=== PATIENT | female | born 1950 | race Caucasian/White ===

== ENCOUNTER 2023-04-12 09:46 | Outpatient (REF) | payer MEDICARE, OTHER, SELFPAY ==
[2023-04-12 11:27] LABS: MANUAL DIFF FLAG NO
[2023-04-12 12:01] LABS: Basophils Percent Auto 0.8 % (0-2); Eosinophils Absolute Auto 0.1 X10*3/uL (0.0-0.4); Eosinophils Percent Auto 1.8 % (0-4); Hematocrit 42.8 % (37.0-47.0); Hemoglobin 14.2 g/dl (12.0-16.0); Imm Gran Abs Auto 0.02 X10*3/uL (0.00-0.03); Imm Gran Pct Auto 0.4 % (0.0-0.4); Lymphocytes Absolute Auto 1.3 X10*3/uL (1.2-4.9); Lymphocytes Percent Auto 26.5 % (20-40); Mean Corpuscular HGB Conc 33.2 g/dl (31.0-35.0); Mean Corpuscular Hemoglobin 33.4 pg (27.0-33.0); Mean Corpuscular Volume 100.7 fL (80.0-98.0); Mean Platelet Volume 12.7 fL (9.4-12.3); Monocytes Absolute Auto 0.6 X10*3/uL (0.1-1.2); Monocytes Percent Auto 11.8 % (2-11); Neutrophils Absolute Auto 2.9 x10*3/uL (2.0-8.3); Neutrophils Percent Auto 58.7 % (45-73); Platelet Count 162 X10*3/uL (160-400); Red Blood Count 4.25 X10*6/uL (4.20-5.50); Red Cell Distribution Width 12.2 % (11.0-16.0)
[2023-04-12 12:41] LABS: Alanine Aminotransferase 10 U/L (0-31); Albumin Level 4.5 g/dL (3.5-5.0); Alkaline Phosphatase 79 U/L (39-117); Anion Gap 11 (12-20); Aspartate Amino Transferase 22 U/L (5-31); Bilirubin Total 0.5 mg/dL (0.0-1.0); Blood Urea Nitrogen 11 mg/dL (9-16); Calcium 9.7 mg/dL (8.4-10.2); Carbon Dioxide 29 mmol/L (22-29); Chloride 104 mmol/L (96-108); Estimated Glomerular Filt Rate > 60; Glucose Random 87 mg/dL (60-115); Potassium 4.1 mmol/L (3.3-5.1); Sodium 140 mmol/L (135-145); Total Protein 6.9 g/dL (6.5-8.0)
[2023-04-12 12:47] LABS: Thyroid Stimulating Hormone 1.19 uIU/mL (0.32-4.0)
== END 2023-04-12 09:47 | disposition home or self-care (01) ==
LOC: HO.LAB 09:46
PROVIDERS: PCP Family Medicine; Visit Provider Physician Assistant
DX: R10.13 Epigastric pain (principal); K21.9 Gastro-esophageal reflux disease without esophagitis; Z79.899 Other long term (current) drug therapy
CPT/HCPCS: 36415; 80053; 84443; 85025; 99202

== ENCOUNTER 2023-04-12 09:46 | Outpatient (AMB) | payer MEDICARE, OTHER, SELFPAY ==
--- NOTE | 2023-04-12 09:54 | MHC.OFFVIS ---
Intake Vital Signs 04/12/23 09:58 Height 5 ft 1.5 in Weight 107 lb BMI 19.9 Blood Pressure Location Lt brachial Position Sitting Intake Visit Reasons: Upper abdominal pain and intermittent diarrhea Intake Note: New consult for upper abdominal pain and diarrhea. Patient cc: upper abdominal pain and sore, hemorrhoids, and between constipation and diarrhea. Service Desk Technician Required: No Accompanied by: Self / Same As Patient Allergies pseudoephedrine [From Sudafed] Allergy (Intermediate, Verified 04/12/23 09:59) Dizziness Medication List - Last Reconciled 04/12/23 by Jolanta No PA-C betamethasone, augmented 0.05 % appl topical DAILY cholecalciferol (vitamin D3) 10 mcg PO DAILY hydrocortisone 2.5% topical ipratropium bromide intranasal mecobalamin (vitamin B12) 1,000 mcg PO DAILY nifedipine ER 60 mg PO DAILY simvastatin 20 mg PO BEDTIME vit B complex 100 combo no.2 ER (B-100 Complex ER) tabs PO HPI HPI Comments History of Present Illness Details A 72 y/o female with annoyances -she says it is not pain-= its mostly, around the rib area bilaterally- prilosec was helpful-took for 6 weeks. Then discontinued as recommended. She feels like she is malodorous breath, she went to the dentist no findings to account for symptoms Dietary modifications were helpful-he eats a well-balanced diet She has a normal bowel pattern. She was established at [facility]-scheduled for a colonoscopy at [facility] for next month- where she had her last- she thinks No nausea, vomiting, weight loss, hematemesis, hematochezia, fever chills [facility] Surgical History History of surgery on left wrist Social History Household Members: Family and Adopted Family Household Members Other:: 4 kids Alcohol intake: current Alcohol intake frequency: a few times a week Alcohol type: wine Patient Tobacco Use Status: Never used Tobacco Use of substances other than those prescribed or required for medical reasons: No Current occupational status: retired Review of Systems Const All systems reviewed & are unremarkable except as noted in HPI and below Card Denies chest pain and Denies dyspnea Resp Denies dyspnea GI Reports abdominal pain, Denies hematochezia, Denies change in bowel habits, Reports heartburn, Denies nausea and Denies vomiting Physical Exam Vital Signs: BMI result Body Mass Index 19.9 Const General: cooperative, healthy appearing, comfortable and no acute distress Orientation/consciousness: patient oriented x3 Limitations: no limitations Eyes Sclerae: sclerae normal Resp Effort & Inspection: normal respiratory effort and able to speak in complete sentences Auscultation: clear to auscultation bilaterally, no rales, no rhonchi and no wheezes Cardio Rate: regular rate Rhythm: regular rhythm Heart sounds: S1 normal heart sound present and S2 normal heart sound present GI Palpation (GI): Soft to palpation and nontender Auscultation: normal bowel sounds Skin General skin exam: no rashes or lesions noted Neuro General: patient oriented x3 Extrem General: Yes full ROM Psych Appearance: grossly normal and well kempt Mental Status: mental status grossly normal Speech and movement: Normal speech and movement present Affect: normal affect Attitude: cooperative Thought process: Normal thought process present Thought content: Normal thought content present Results Reviewed Results Reviewed: 2014- [facility]- diverticulosis- Assessment & Plan Assessment & Plan (1) Epigastric pain: Comment: Symptom will relief with PPI she will begin omeprazole 20 mg Code(s): R10.13 - Epigastric pain (2) Encounter for screening colonoscopy: Comment: After further discussion patient had appointment for colon screening consult at [facility] She prefers to follow through with us Code(s): Z12.11 - Encounter for screening for malignant neoplasm of colon (3) Acid reflux: Comment: Will get H pylori with positive will treat When sample submitted begin omeprazole 20 mg daily Code(s): K21.9 - Gastro-esophageal reflux disease without esophagitis Plan: EGD rule out peptic ulcer disease, nonulcer dyspepsia, esophagitis, other endoscopic findings to account for her symptoms Plan EGD colonoscopy Chronic MiraLax Gatorade prep Orders: Orders H pylori Ag Stool Today A04.8 - Other specified bacterial intestinal infections Thyroid Stimulating Hormone Today R10.13 - Epigastric pain, Z12.11 - Encounter for screening for malignant neoplasm of colon EGD/Sigmoid Combo -GI Use Only Today R10.13 - Epigastric pain, Z12.11 - Encounter for screening for malignant neoplasm of colon Complete Blood Count Auto Diff Today R10.13 - Epigastric pain Comprehensive Met. Panel Today K58.9 - Irritable bowel syndrome without diarrhea Medications: New polyethylene glycol 3350 (Miralax) Take as directed by mouth the day before your procedure. 238 grams PO ONCE 1 day PRN 238 grams 0RF laxative effect bisacodyl (Dulcolax (bisacodyl)) Day before procedure, prep day Take 4 tablets by mouth upon awakening followed by large glass of water 20 mg (4 x 5 mg) PO ONCE 1 day 4 tabs 0RF colonoscopy prep Z12.11 - Encounter for screening for malignant neoplasm of colon omeprazole 40 mg (2 x 20 mg) PO DAILY 30 caps 5RF Patient Instructions: EGD/ colon H pylori stool antigen-once sample submitted may begin omeprazole 20 mg Hp- if positive- otherwise cont- ppi Discussed procedures, risks, need for escorted due to anesthesia in MiraLax Gatorade split prep literature given Coding Level of Care Code New Pt Level 3 (86576) Diagnoses Epigastric pain R10.13 Encounter for screening colonoscopy Z12.11 Acid reflux K21.9 Time Spent (min) 30
[2023-04-12 09:58] VITALS: BMI 19.9
== END 2023-04-12 11:25 | disposition home or self-care (01) ==
PROVIDERS: Visit Provider Physician Assistant
DX: R10.13 Epigastric pain (principal); Z12.11 Encounter for screening for malignant neoplasm of colon; K21.9 Gastro-esophageal reflux disease without esophagitis
CPT/HCPCS: 99203

== ENCOUNTER 2023-04-14 12:50 | Outpatient (REF) | payer MEDICARE, OTHER, SELFPAY | END 2023-04-14 12:51 | disposition home or self-care (01) | LOC: HO.WFDLDS 12:50 | PROVIDERS: Visit Provider Physician Assistant | DX: A04.8 Other specified bacterial intestinal infections (principal) | CPT/HCPCS: 87338 ==

== ENCOUNTER 2023-08-16 08:20 | Day surgery (SDC) | payer MEDICARE, OTHER, SELFPAY ==
--- NOTE | 2023-08-15 13:24 | P.CONAN_ITS ---
HPI - Anesthesia Eval Consult details Narrative: 73yo F for Upper Endoscopy and Colonoscopy PMFSH Active Problems Active Problems: All Active Problems (Updated 04/12/23 @ 13:54 by Jolanta No PA-C) Acid reflux (Acute) Encounter for screening colonoscopy (Acute) Epigastric pain (Acute) Surgical History Surgical History History of surgery on left wrist Social History Social History Household Members: Family and Adopted Family Household Members Other:: 4 kids Alcohol intake: current Alcohol intake frequency: a few times a week Alcohol type: wine Patient Tobacco Use Status: Never used Tobacco Current occupational status: retired Meds Allergies Allergy/AdvReac Type Severity Reaction Status Date / Time pseudoephedrine Allergy Intermediate Dizziness Verified 04/12/23 09:59 [From [facility]] Home Medications Medication Instructions Recorded Confirmed Last Taken Type betamethasone, augmented 0.05 % appl topical DAILY 04/12/23 Unknown History topical cream cholecalciferol (vitamin D3) 10 10 mcg PO DAILY 04/12/23 Unknown History mcg (400 unit) capsule hydrocortisone 2.5 % topical cream topical 04/12/23 Unknown History with perineal applicator ipratropium bromide 21 mcg (0.03 intranasal 04/12/23 Unknown History %) nasal spray mecobalamin (vitamin B12) 1,000 1,000 mcg PO DAILY 04/12/23 Unknown History mcg lozenges nifedipine 60 mg tablet,extended 60 mg PO DAILY 04/12/23 Unknown History release simvastatin 20 mg tablet 20 mg PO BEDTIME 04/12/23 Unknown History vit B complex 100 combo no.2 100 tab PO 04/12/23 Unknown History mg tablet,extended release (B-100 Complex ER) Exam Pertinent Lab Results Pertinent Lab Results: Laboratory Tests 04/12/23 11:25 WBC 5.0 Hgb 14.2 Hct 42.8 Plt Count 162 Sodium 140 Potassium 4.1 Chloride 104 Carbon Dioxide 29 BUN 11 Creatinine 0.79 Assessment and Plan Assessment Anesthesia Assessment: Chart Reviewed
[2023-08-16 08:51] VITALS: BMI 19.8
[2023-08-16 09:02] VITALS: BP 147/68; PULSE 54; RESP 16; TEMP 36.7; O2SAT 98
--- NOTE | 2023-08-16 09:15 | MHC.SHP ---
Pre-Procedural Eval Section A - 24 Hr Update-Section A only Date of Service: 08/16/23 Section B - Complete if H&P > 30 days Chief Complaint: gerd,screening Relevant Family History (Specify if Yes): No Relevant Social History: None Present Medications: see Short Stay Collaborative assessment Medical History: Significant History (high cholesterol , HTN) History of Previous Operations: Relevant previous surgery/procedure and date(s) (History of surgery on left wrist) Allergies: Allergies Allergy/AdvReac Type Severity Reaction Status Date / Time pseudoephedrine Allergy Intermediate Dizziness Verified 08/16/23 08:46 [From [facility]] Review of Systems Sugical H&P ROS: Negative: Constitution, Cardiovascular, Respiratory, Neurological, Psychiatric, Hem-Onc, Allergic/Immunologic, Gastrointestinal, Genitourinary, Musculoskeletal, Integumentary, Endocrine and Eyes/Ears/Nose/Throat Exam Surgical H&P Exam: Normal: HEENT, Normal: Heart, Normal: Lungs, Normal: Extremities, Normal: Abdomen, Normal: Skin and Normal: Neurological Plan Diagnosis/Plan: Unchanged I have reviewed the history and physical and performed a pertinent physical examination on my patient. No changes have occurred unless specified. Time Spent With Patient Time: Total time managing care of this patient today ____ minutes.
[2023-08-16] MEDS: Lactated Ringers 1,000 ML 100 ML IVCONT (09:18)
--- NOTE | 2023-08-16 09:19 | P.OP_ITS ---
Operative Note Operative Note Date of Service: 08/16/23 Narrative: Operative Information Procedure Description: EGD, Colonoscopy Indication: GERD, screening Anesthesia: MAC FLEXIBLE TRANSORAL UPPER GASTROINTESTINAL ENDOSCOPY AND COLONOSCOPY PROCEDURE NOTE UPPER ENDOSCOPY Consent: Indications for the procedure and potential complications of bleeding, perforation, reaction to medications and missed diagnosis were discussed with the patient and informed consent was obtained. Instrument: Olympus GIF H 190 J mid size upper endoscope Monitoring: Vital signs and clinical assessment, continuous EKG monitoring, Pulse oximetry, Carbon Dioxide monitoring and blood pressure monitoring were done throughout the procedure. Procedure: The patient was placed in the left lateral decubitis position and pre-procedure medications were administered and a bite block was placed. The endoscope was inserted into the mouth and advanced under direct vision to the third part of duodenum. A careful inspection was made as the upper endoscope was withdrawn including a retroflexed examination of the proximal stomach; Findings and interventions are described below. Findings: Larynx:normal Esophagus: GE junction at 43 cm, diaphragm hiatus at 43 cm, normal mucosa--bx t aken from GEJ, distal and proximal esophagus Stomach: Patchy erythema in the antrum. Biopsies were obtained. Grade 2 flap valve on retroflexed examination of the cardia. Duodenum: Normal bulb and descending duodenum, Intervention: Biopsies as noted above, COLONOSCOPY Instrument: Olympus variable stiffness pediatric scope 190L Colonoscopy Monitoring: Vital signs and clinical assessment, continuous EKG monitoring, Pulse oximetry, Carbon Dioxide monitoring and blood pressure monitoring were done throughout the procedure. Colon withdrawal time was 9 minutes. Procedure: The patient was placed in the left lateral decubitis position and pre-procedure medications were administered. After a digital rectal examination of the ano-rectum, the video colonoscope was inserted into the rectum and advanced through the colon to the cecum/TI. The colonoscope was slowly withdrawn in a retrograde panoramic fashion and the colon mucosa was carefully examined including a retroflexed view of the rectum. Findings and interventions are described below. Procedure Difficulty:moderate Findings: Terminal Ileum-superficially intubated, normal Cecum: 4-6 mm sessile polyp removed with cold forceps Ascending Colon: scattered diverticula Transverse Colon -normal Descending Colon: moderate diveticulosis Sigmoid Colon: moderate severe diverticulosis, with luminal narrowing and hypertrophy Rectum: Retroflexion with medium sized internal hemorrhoids, grade I Anorectum - normal Colon preparation: [place] Bowel Preparation Scale Right colon; 2 Transverse colon: 2 Left colon; 2 (0 = Unprepared colon segment with mucosa not seen due to solid stool that cannot be cleared. 1 = Portion of mucosa of the colon segment seen, but other areas of the colon segment not well seen due to staining, residual stool and/or opaque liquid. 2 = Minor amount of residual staining, small fragments of stool and/or opaque liquid, but mucosa of colon segment seen well. 3 = Entire mucosa of colon segment seen well with no residual staining, small fragments of stool or opaque liquid) Impression and Post Procedure Diagnosis: Endoscopy Findings: gastritis Colonoscopy Findings: diverticulosis colon polyp internal hemorrhoids Plan: Await Pathology results Repeat Colonoscopy in 5-7 years if adenomatous polyp, 10 yrs if hyperplastic or earlier if clinically indicated and if patient wishes to proceed at the time (official screening age ends at 76) High fiber diet leaflet avoid straining at stool, epsom salts and sitz bath, anusol supps or cream Above findings were reviewed with the patient and relevant handouts were provided if indicated.
[2023-08-16 09:59] VITALS: BP 130/61; PULSE 60; RESP 10; TEMP 36.2; O2SAT 99
[2023-08-16 10:14] VITALS: BP 131/61; PULSE 62; RESP 16; TEMP 36.2; O2SAT 98
== END 2023-08-16 11:24 | disposition home or self-care (01) ==
PROVIDERS: PCP Family Medicine; Visit Provider Internal Medicine Gastroenterology
PROC: (CPT 43239; principal; 2023-08-16 10:20)
DX: K29.70 Gastritis, unspecified, without bleeding (principal); K21.9 Gastro-esophageal reflux disease without esophagitis; Z12.11 Encounter for screening for malignant neoplasm of colon; K63.5 Polyp of colon; K57.30 Diverticulosis of large intestine without perforation or abscess without bleeding; K64.0 First degree hemorrhoids; K56.2 Volvulus
CPT/HCPCS: 43239; 45380; 88305; 88313; 88342; J1596; J2704

== ENCOUNTER → 2023-08-16 08:20 | Outpatient (BNV) | payer MEDICARE, OTHER, SELFPAY | PROVIDERS: PCP Family Medicine; Visit Provider Internal Medicine Gastroenterology | DX: Z12.11 Encounter for screening for malignant neoplasm of colon (principal); K63.5 Polyp of colon; K57.90 Diverticulosis of intestine, part unspecified, without perforation or abscess without bleeding; K64.0 First degree hemorrhoids; K21.9 Gastro-esophageal reflux disease without esophagitis; K29.70 Gastritis, unspecified, without bleeding | CPT/HCPCS: 43239; 45380 ==

== ENCOUNTER 2023-08-29 10:57 | Outpatient (AMB) | payer MEDICARE, OTHER, SELFPAY ==
--- NOTE | 2023-08-29 11:01 | A.OFFVIS_ITS ---
Intake Vital Signs 08/29/23 11:03 Height 5 ft 2 in Weight 109 lb BMI 19.9 BP 136/62 Blood Pressure Location Lt brachial Position Sitting Pulse 76 Intake Visit Reasons: S/P Double; Dr.. Poe Intake Note: Patient follow up for EGD/Colonoscopy results Patient denies any GI issues. Interlocking And Signal Mechanic Required: No Accompanied by: Self / Same As Patient Allergies pseudoephedrine [From Sudafed] Allergy (Intermediate, Verified 08/29/23 11:01) Dizziness HPI HPI Comments History of Present Illness Details Pleasant 73-year-old fem gustavo follows up after recent EGD colonoscopy Tolerated procedures well Reviewed previous history Questions answered to her satisfaction Reviewed procedure report, pathology and recommended Good response with PPI and dietary modification No nausea, fall vomiting, hematemesis, abdominal pain, fever chills PFSH Medical History (Updated 08/29/23 @ 12:55 by Jolanta No PA-C) History of deviated nasal septum Surgical History History of esophagogastroduodenoscopy (EGD) Hx of oral surgery Hx of colonoscopy History of surgery on left wrist Social History Household Members: Family and Adopted Family Household Members Other:: 4 kids Alcohol intake: current Alcohol intake frequency: a few times a week Alcohol type: wine Patient Tobacco Use Status: Never used Tobacco Current occupational status: retired Review of Systems Const All systems reviewed & are unremarkable except as noted in HPI and below Physical Exam Vital Signs: Last Vital Signs Pulse 76 08/29/23 11:03 BP 136/62 08/29/23 11:03 BMI result Body Mass Index 19.9 Very pleasant, alert oriented Resp Effort & Inspection: normal respiratory effort and able to speak in complete sentences Psych Appearance: grossly normal and well kempt Mental Status: mental status grossly normal Speech and movement: Normal speech and movement present and Clear speech present Affect: normal affect Attitude: cooperative Thought process: Normal thought process present Thought content: Normal thought content present Results Reviewed Results Reviewed: Impression and Post Procedure Diagnosis: Endoscopy Findings: gastritis Colonoscopy Findings: diverticulosis colon polyp internal hemorrhoids Plan: Await Pathology results Repeat Colonoscopy in 5-7 years if adenomatous polyp, 10 yrs if hyperplastic or earlier if clinically indicated and if patient wishes to proceed at the time (official screening age ends at 76) High fiber diet leaflet avoid straining at stool, epsom salts and sitz bath, anusol supps or cream Above findings were reviewed with the patient and relevant handouts were provided if indicated. pls tell pt benign polyp removed from recent colonoscopy which is good news. These are clumps of normal tissue without any cancer. recommend repeat colon in 10 years if health allows, or earlier if any concerns or new symptoms EGD reveals reflux changes in lower esophagus might benefit from ppi of not taking Assessment & Plan Assessment & Plan (1) Acid reflux: Comment: Continue omeprazole 20 mg daily Code(s): K21.9 - Gastro-esophageal reflux disease without esophagitis Plan: PPI (2) Epigastric pain: Comment: Resolved Code(s): R10.13 - Epigastric pain Plan: Continue PPI (3) Colon polyps: Comment: Colon polyps benign - tissue Code(s): K63.5 - Polyp of colon Plan: Benign, repeat colonoscopy 10 years Patient Instructions: Repeat asymptomatic colonoscopy 10 Of reflux precautions review Continue omeprazole daily Encouraged to call questions or concerns Coding Level of Care Code Est Pt Level 3 (12148) Diagnoses Acid reflux K21.9 Epigastric pain R10.13 Colon polyps K63.5 Time Spent (min) 35
[2023-08-29 11:03] VITALS: BP 136/62; PULSE 76; BMI 19.9
== END 2023-08-29 13:24 | disposition home or self-care (01) ==
PROVIDERS: PCP Family Medicine; Visit Provider Physician Assistant
DX: K21.9 Gastro-esophageal reflux disease without esophagitis (principal); R10.13 Epigastric pain; K63.5 Polyp of colon
CPT/HCPCS: 99213

== ENCOUNTER → 2023-08-29 10:57 | Outpatient (BNVA) | payer MEDICARE, OTHER, SELFPAY | PROVIDERS: PCP Family Medicine; Visit Provider Physician Assistant | DX: K21.9 Gastro-esophageal reflux disease without esophagitis (principal); R10.13 Epigastric pain; K63.5 Polyp of colon | CPT/HCPCS: 99212 ==

== ENCOUNTER 2024-09-21 10:46 | Outpatient (AMB) | payer MEDICARE, OTHER, SELFPAY ==
--- NOTE | 2024-09-21 10:57 | MHC.OFFVIS ---
Vital Signs 09/21/24 10:58 Height 5 ft 1 in Weight 109 lb BMI 20.6 BP 120/54 L Blood Pressure Location Lt brachial Position Sitting Pulse 68 Pulse Oximetry (%) 96 Oxygen Delivery Method Room Air Intake Visit Reasons: ~ 1 YR FUV. GERD(EILEEN PT) Intake Note: Patient complex follow up for GERD/Jolanta velasco 08/29/2023 and last Colonoscopy was 08/16/[address] Poe with 5 yrs recall. Patient cc: between diarrhea and constipation, feeling sensation of chocking on her esophagus. Linderman Operator Required: No Accompanied by: Self / Same As Patient Allergies pseudoephedrine [From Sudafed] Allergy (Intermediate, Verified 09/21/24 10:55) Dizziness Medication List - Last Reconciled 09/21/24 by Felipa Melendez CNP betamethasone, augmented 0.05 % appl topical DAILY cholecalciferol (vitamin D3) 10 mcg PO DAILY glucosamine HCl 1,500 mg PO DAILY hydrocortisone 2.5% topical ipratropium bromide intranasal mecobalamin (vitamin B12) 1,000 mcg PO DAILY nifedipine ER 60 mg PO DAILY omeprazole 40 mg (2 x 20 mg) PO DAILY 90 days simvastatin 20 mg PO BEDTIME vit B complex 100 combo no.2 ER (B-100 Complex ER) tabs PO HPI HPI ~ 1 YR FUV. GERD(EILEEN PT): Details: Patient is a 74-year-old female with PMH of GERD. Last visit with NADINE Pena 08/29/2023 for follow-up after EGD/colonoscopy. Pt is here today for medication refill for GERD management . She reports acid reflux symptoms are well controlled with daily omeprazole. States flares occur less than one/month. Shares esophageal spasm approx 2x/month down from weekly occurrence. She is requiring about long-term use of omeprazole with known osteoporosis. She reports stool pattern is at baseline of prominent constipation alternating with loose stools. Reports BM almost every day. States she stop taking fiber gummies about three months ago after no change in stool pattern. Associated symptoms: ab discomfort Patient denies: fever/chills, n/v, appetite changes, unintentional wt loss, dysphasia, or melena/hematochezia. common foods consumed: eggs, yogurt, cereal half meat sandwhich limited red meat, mostly chicken and fish endorse adequate intake of vegetables, fruit 3x/week and legumes drinking [place] for hydration, minimal flat water intake, also drinks ice tea Social hx: 1-2 glasses of wine or vodka denies recreational drug use non-smoker family hx father passed from pancreatic CA multiple paternal cousins with breast and other forms of CA denies personal hx of CA fiber tablet, diet omeprazole 20, 40mg with goal to reduce. Can bring pepcid. [facility] Medical History (Updated 09/21/24 @ 11:58 by Felipa Melendez CNP) Constipation History of deviated nasal septum Surgical History History of esophagogastroduodenoscopy (EGD) Hx of oral surgery Hx of colonoscopy History of surgery on left wrist Social History Household Members: Family and Adopted Family Household Members Other:: 4 kids Alcohol intake: current Alcohol intake frequency: a few times a week Alcohol type: wine Patient Tobacco Use Status: Never used Tobacco Current occupational status: retired Review of Systems Const Reports as per HPI ENT Reports as per HPI Card Reports as per HPI Resp Reports as per HPI GI Reports as per HPI Reports as per HPI Physical Exam Vital Signs: Last Vital Signs Pulse 68 09/21/24 10:58 BP 120/54 L 09/21/24 10:58 Pulse Ox 96 09/21/24 10:58 Oxygen Delivery Method Room Air 09/21/24 10:58 BMI result Body Mass Index 20.6 Const General: healthy appearing, no acute distress and well developed Nutritional Appearance: well nourished Orientation/consciousness: patient oriented x3 HEENT Head: Yes normal to inspection, Yes normocephalic and Yes atraumatic Face and sinus: Yes normal facial exam Eyes General: appearance normal, both eyes and all related structures Neck Neck: Yes normal visual inspection Resp Effort & Inspection: normal respiratory effort, able to speak in complete sentences, no tracheal deviation and symmetric chest movement Auscultation: clear to auscultation bilaterally Cardio Jugular venous distension: no JVD Rate: regular rate Rhythm: regular rhythm Heart sounds: S1 normal heart sound present, S2 normal heart sound present, no gallops and no murmurs GI Inspection: Yes normal to inspection and No distended Palpation (GI): Soft to palpation, not firm, nontender and No hepatosplenomegaly present Auscultation: normal bowel sounds Neuro General: patient oriented x3 Gait exam (Neuro): Normal gait present Psych Appearance: grossly normal Mental Status: mental status grossly normal Speech and movement: Normal speech and movement present Affect: normal affect Attitude: cooperative Thought process: Normal thought process present Thought content: Normal thought content present Insight: Good insight present (Psych) Judgement: Good judgement present (Psych) Results Reviewed Results Reviewed: Date of Service: 08/16/23 Narrative: Operative Information Procedure Description: EGD, Colonoscopy Indication: GERD, screening FLEXIBLE TRANSORAL UPPER GASTROINTESTINAL ENDOSCOPY AND COLONOSCOPY PROCEDURE NOTE UPPER ENDOSCOPY Procedure: The patient was placed in the left lateral decubitis position and pre-procedure medications were administered and a bite block was placed. The endoscope was inserted into the mouth and advanced under direct vision to the third part of duodenum. A careful inspection was made as the upper endoscope was withdrawn including a retroflexed examination of the proximal stomach; Findings and interventions are described below. Findings: Larynx:normal Esophagus: GE junction at 43 cm, diaphragm hiatus at 43 cm, normal mucosa--bx taken from GEJ, distal and proximal esophagus Stomach: Patchy erythema in the antrum. Biopsies were obtained. Grade 2 flap valve on retroflexed examination of the cardia. Duodenum: Normal bulb and descending duodenum, Intervention: Biopsies as noted above COLONOSCOPY Procedure: The patient was placed in the left lateral decubitis position and pre-procedure medications were administered. After a digital rectal examination of the ano-rectum, the video colonoscope was inserted into the rectum and advanced through the colon to the cecum/TI. The colonoscope was slowly withdrawn in a retrograde panoramic fashion and the colon mucosa was carefully examined including a retroflexed view of the rectum. Findings and interventions are described below. Procedure Difficulty:moderate Findings: Terminal Ileum-superficially intubated, normal Cecum: 4-6 mm sessile polyp removed with cold forceps Ascending Colon: scattered diverticula Transverse Colon -normal Descending Colon: moderate diveticulosis Sigmoid Colon: moderate severe diverticulosis, with luminal narrowing and hypertrophy Rectum: Retroflexion with medium sized internal hemorrhoids, grade I Anorectum - normal Colon preparation: Means Bowel Preparation Scale Right colon; 2 Transverse colon: 2 Left colon; 2 Impression and Post Procedure Diagnosis: Endoscopy Findings: gastritis Colonoscopy Findings: diverticulosis colon polyp internal hemorrhoids Plan: Await Pathology results Repeat Colonoscopy in 5-7 years if adenomatous polyp, 10 yrs if hyperplastic or earlier if clinically indicated and if patient wishes to proceed at the time (official screening age ends at 76) High fiber diet leaflet avoid straining at stool, epsom salts and sitz bath, anusol supps or cream Pathology Received: 08/16/23 Diagnosis A. Stomach, biopsy: Antral-type and oxyntic mucosa with mild chronic inactive inflammation; no Helicobacter organisms seen. B. GE junction, biopsy: - Cardiac-type mucosa with moderate chronic inactive inflammation; no intestinal metaplasia seen. - Squamous mucosa within normal limits. C. Esophagus, distal, biopsy: Squamous epithelium within normal limits; no inflammation seen. D. Esophagus, proximal, biopsy: Squamous epithelium within normal limits; no inflammation seen. E. Cecum, polypectomy: Colonic mucosa with prominent lymphoid aggregate and mild surface hyperplastic changes Assessment & Plan Assessment & Plan (1) Colon polyps: Comment: 08/16/23: Cecum, polypectomy: hyperplastic changes. colonoscopy due 2033 (consider age) Code(s): K63.5 - Polyp of colon Category: Medical Qualifiers: Colon polyp type: hyperplastic Colon location: unspecified part of colon Qualified Code(s): K63.5 - Polyp of colon Plan: Colonoscopy July 2023 recommendations for repeat in 10 years based on findings of hyperplastic colon polyp, cecum. She will be due 2033. We will continually evaluate risk and discuss given age. (2) Acid reflux: Code(s): K21.9 - Gastro-esophageal reflux disease without esophagitis Category: Medical Qualifiers: Esophagitis presence: with esophagitis Esophagitis bleeding: without hemorrhage Qualified Code(s): K21.00 - Gastro-esophageal reflux disease with esophagitis, without bleeding Plan: Well-controlled with daily omeprazole. Understands concern of long-term use of PPI. We do not have records indicating osteoporosis. We will request most recent office visit note, DEXA scan and any recent labs from PCP office. She is taking vitamin D and B12 supplement. We will obtain monitoring labs. Jolanta would like to initiate a trial of alternating between 20 mg and 40 mg doses of omeprazole every other day. Advised she can bridge with Pepcid if needed. Education on GERD prevention-Advised against heavy meals. Encouraged small frequent meals VS large meals, remaining upright after meals x 2-3 hours, avoid late night eating/carbonation/spicy foods/caffeine/alcohol/known triggers and tight fitting clothes (3) Constipation: Code(s): K59.00 - Constipation, unspecified Category: Medical Qualifiers: Constipation type: other constipation type Qualified Code(s): K59.09 - Other constipation Plan: Consistent with IBS-C. Do believe she would benefit from fiber supplementation. Discussion on formulation, powder is preferred over gummies or tablets. However, she is not keen on powder. We will start with tablet, Citrucel prescription sent to preferred pharmacy. Reinforced lifestyle modifications to promote regularity: -higher fiber diet, examples provided -adequate hydration with water -150 minutes of moderate intensity exercise per week Plan Discussed follow-up in 6 months. However, Jolanta would prefer follow-up in 1 year and will return sooner if needed. Time: I spent a total of 45 minutes on the date of encounter which includes: Preparing to see the patient (reviewed previous documentation, test results and medical history) Performing a medically appropriate exam and/or evaluation Ordering medications, tests, and procedures Documenting clinical information in the health record Orders: Orders Vitamin B12 and Folate Today K21.9 - Gastro-esophageal reflux disease without esophagitis Complete Blood Count no Diff Today K21.9 - Gastro-esophageal reflux disease without esophagitis Vitamin D 1,25 dihydroxy Today K21.9 - Gastro-esophageal reflux disease without esophagitis Medications: New methylcellulose (laxative) (Citrucel) 500 mg PO DAILY 90 tabs 1RF Refilled omeprazole 40 mg (2 x 20 mg) PO DAILY 90 days 180 caps 2RF Coding Level of Care Code Established Pt Est Pt Level 4 (01857) Patient Type Established Diagnoses Hyperplastic colonic polyp, unspecified part of colon K63.5 Colon polyp type: hyperplastic Colon location: unspecified part of colon Gastroesophageal reflux disease with esophagitis without hemorrhage K21.00 Esophagitis presence: with esophagitis Esophagitis bleeding: without hemorrhage Other constipation K59.09 Constipation type: other constipation type
[2024-09-21 10:58] VITALS: BP 120/54; PULSE 68; O2SAT 96; BMI 20.6
--- OUTSIDE RECORDS SUMMARY | 2024-09-21 11:31 | XMS_ITS | Clinical Summary ---
Author Organization [facility] Address [address] [place] [phone] Phone Care Team Providers Care Decorating Kiln Operator Name Role Phone Marc Prieto MD Primary Care Provider [phone] Surgical History Surgery Date Site/Laterality Comments STEREOTACTIC CORE BIOPSY Left Family History Medical History Relation Name Comments Breast cancer Cousin 1 Breast cancer Cousin 2 Breast cancer Cousin 3 Relation Name Status Comments Cousin 1 Alive Cousin 2 Alive Cousin 3 Alive Social History Tobacco Use Types Packs/Day Years Used Date Smoking Tobacco: Never Assessed Comments No Sex and Gender Information Value Date Recorded Sex Assigned at Not on file Legal Sex Female 5:14 PM EST Gender Identity Not on file Sexual Orientation Not on file Obstetrics History Para Term AB IAB SAB Ectopic Multiple Livin g Live Births 2 Last Filed Vital Signs Vital Sign Reading Time Taken Comments Blood Pressure - - Pulse - - Temperature - - Respiratory Rate - - Oxygen Saturation - - Inhaled Oxygen Concentration - - Weight 49.9 kg (110 lb) 05/08/2024 11:21 AM EST Height 157.5 cm (5' 2 ) 05/08/2024 11:21 AM EST Body Mass Index 20.12 05/08/2024 11:21 AM EST Plan of Treatment Health Maintenance Due Date Last Done Comments Cholesterol Screening (Lipid Panel) 05/01/2022 Colorectal Cancer Screening: Colonoscopy 05/01/2022 Depression Screening 05/01/2022 Falls Risk Assessment 05/01/2022 Hepatitis C Screening 05/01/2022 Medicare Annual Wellness Visit 05/01/2022 Social Influencers of Health Screening 05/01/2022 COVID-19 Vaccine ( season) 2024 12/11/2023, 05/09/2023, 11/10/2022, Additional history exists Hypertension/CHF/CAD Annual BMP Blood Test 05/08/2024 Breast Cancer Screening 05/08/2026 05/08/20 24, 04/28/2023, 04/05/2022, Additional history exists DTaP,Tdap,and Td Vaccines (2 - Td or Tdap) 01/30/2033 01/30/2023 Osteoporosis Screening (Bone Density Screening) 04/28/2033 04/28/2023, 03/23/2021 Zoster Vaccines Completed 12/03/2021, 09/21/2021 Pneumococcal Vaccine: 50+ Years Completed 04/18/2023 RSV Immunization Adult Patients Completed 04/26/2023 Influenza Vaccine Completed 01/24/2024, , 02/09/2022, Additional history exists HIB Vaccines Aged Out No longer eligi ble based on patient's age to complete this topic HPV Vaccines Aged Out No longer eligi ble based on patient's age to complete this topic Hepatitis A Vaccines Aged Out No long er eligible based on patient's age to complete this topic Hepatitis B Vaccines Aged Out No long er eligible based on patient's age to complete this topic IPV Vaccines Aged Out No longer eligi ble based on patient's age to complete this topic MMR Vaccines Aged Out No longer eligi ble based on patient's age to complete this topic Meningococcal ACWY Vaccine Aged Out N o longer eligible based on patient's age to complete this topic Meningococcal B Vaccine Aged Out No l onger eligible based on patient's age to complete this topic RSV Immunization Patients Under 20 months Aged Out No longer eligible based on patient's age to complete this topic Varicella Vaccines Aged Out No longer eligible based on patient's age to complete this topic Procedures Procedure Name Priority Date/Time Associated Diagnosis Comments MG MAMMO DIGITAL SCREENING W ALEJANDRO BILAT Routine 05/08/2024 11:25 AM EST Encounter for screening mammogram for breast cancer TAISHA DEXA AXIAL SKELETON Routine 04/28/2023 10:35 AM EST Encounter for screening for osteoporosis from Last 3 Months or Most Recently Relevant to Health Maintenance Results * MG Mammo Digital Screening w Alejandro bilat (05/08/2024 11:25 AM EST) Anatomical Region Laterality Modality Breast Bilateral Mammography 05/09/2024 7:07 AM EST Impressions 05/09/2024 7:12 AM EST No mammographic evidence of malignancy. ?? No suspicious interval change. A negative mammogram in the presence of a clinically suspicious palpable abnormality does not preclude the possibility of malignancy or alter the indications for biopsy. ASSESSMENT: ?? BI-RADS 1: NEGATIVE RECOMMENDATION(S): 1: Routine screening mammogram BILATERAL in 1 year. -------- FINAL REPORT -------- Dictated By: Rahul Francois Dictated Date: 05/09/2024 07:07 ET Assigned Physician: Rahul Francois Reviewed and Electronically Signed By: Rahul Francois Signed Date: 05/09/2024 07:12 ET Workstation ID: [id number] Transcribed By: Self Edit Transcribed Date: 05/09/2024 07:07 ET Narrative 05/09/2024 7:12 AM EST EXAM: ??SCREENING MAMMOGRAPHY, BILATERAL HISTORY: ??SCREENING. ??Family history of breast cancer, cousin x 3) COMPARISON: ??04/28/2023, 04/05/2022, 03/18/2021 TECHNIQUE: Synthesized CC and MLO projections of each breast. ??Tomosynthesis of each breast in the CC and MLO projections. ADDITIONAL IMAGING: None Computer-aided detection was employed with the iCAD ??profound AI 3-D. TISSUE DENSITY: The breasts are heterogeneously dense, which may obscure small masses. (BI-RADS category C) FINDINGS: RIGHT BREAST: No suspicious mass. No suspicious calcification. No distortion. ?? No additional suspicious right breast findings LEFT BREAST: No suspicious mass. No suspicious calcification. No distortion. ?? No additional suspicious left breast findings Procedure Note Rahul Francois MD - 05/09/2024 EXAM: SCREENING MAMMOGRAPHY, BILATERAL HISTORY: SCREENING. Family history of breast cancer, cousin x 3) COMPARISON: 04/28/2023, 04/05/2022, 03/18/2021 TECHNIQUE: Synthesized CC and MLO projections of each breast.Tomosynthesis of each breast in the CC and MLO projections. ADDITIONAL IMAGING: None Computer-aided detection was employed with the iCAD profound AI 3-D. TISSUE DENSITY: The breasts are heterogeneously dense, which may obscuresmall masses. (BI-RADS category C) FINDINGS: RIGHT BREAST: No suspicious mass. No suspicious calcification. No distortion. Noadditional suspicious right breast findings LEFT BREAST: No suspicious mass. No suspicious calcification. No distortion. Noadditional suspicious left breast findings IMPRESSION: No mammographic evidence of malignancy. No suspicious interval change. A negative mammogram in the presence of a clinically suspicious palpableabnormality does not preclude the possibility of malignancy or alter theindications for biopsy. ASSESSMENT: BI-RADS 1: NEGATIVE RECOMMENDATION(S): 1: Routine screening mammogram BILATERAL in 1 year. -------- FINAL REPORT -------- Dictated By: Rahul Francois Dictated Date: 05/09/2024 07:07 ET Assigned Physician: Rahul Francois Reviewed and Electronically Signed By: Rahul Francois Signed Date: 05/09/2024 07:12 ET Workstation ID: [id number] Transcribed By: Self Edit Transcribed Date: 05/09/2024 07:07 ET us Self Referral Sppl IMG BI PROCEDURES Final Resul t * TAISHA DEXA AXIAL SKELETON (04/28/2023 10:35 AM EST) Anatomical Region Laterality Modality Mammography 04/28/2023 9:33 AM EST Narrative 04/28/2023 10:35 AM EST [facility] Diagnostic Imaging Department [address] [place] [address] [id number] Patient: ??FORGETTE,JOLANTA DOMINGUEZ ?/Age/Sex: 1950 - Unit#: ??[id number] ? Location/Status: ??SPDIMAM/REG CLI ? Mnemonic/Ordering Site: ??MAMDEXAAX/SPMAM Ordering Physician: ??MARC PRIETO MD Taisha Dexa Axial Skeleton - 04/28/23954 Report Status:Signed HISTORY: ??The patient is a 72-year-old postmenopausal female with clinical concern for metabolic bone disease. FINDINGS: ??Dual energy x-ray absorptiometry of the lumbar spine and femurs is performed. The mean bone mineral density at L1-3 is 0.976 gm/cm2 which is 83% of that of young normals and 109% of that of age matched controls. This yields a T- score of -1.6 and a Z-score of 0.7 which is diagnostic of osteopenia. The mean bone mineral density of the femurs bilaterally is 0.745 gm/cm2 which is 74% of that of young normals and 98% of that of age matched controls. ??This yields a T-score of -2.1 and a Z-score of -0.1 which is diagnostic of osteopenia. ??The T-score of the left femoral neck is -2.5 which is diagnostic of osteoporosis. IMPRESSION: 1. Osteoporosis. ??There has been a decrease of 3.9% in bone mineral density in the lumbar spine since the prior examination of 03/23/2021. ??There has been a decrease of 3.9% in bone mineral density in the right femur and a decrease of 3.5% in bone mineral density in the left femur. 2. FRAX analysis yields a 10-year probability of major osteoporotic fracture of 17.3% and a 10-year probability of hip fracture of 4.0%. Code 94684 Dictating Physician: ??KIMBERLY LEI MD Electronically Signed by: ??KIMBERLY LEI MD [facility] Date/Time: ??04/28/23 1033 Sign date/Time: ??04/28/23 1035 Procedure Note Kimberly Lei MD - 07/05/2023 [facility] Diagnostic Imaging Department [address] [place] [id number] Patient: JOLANTA SALAMANCA JANEY Love./Age/Sex: 1950 72 - Unit#: [id number] [facility] CLI [facility]em[facility] Ordering Physician: MARC PRIETO MD Taisha Dexa Axial Skeleton - 04/28/23954 Report Status:Signed HISTORY: The patient is a 72-year-old postmenopausal female withclinical concern for metabolic bone disease. FINDINGS: Dual energy x-ray absorptiometry of the lumbar spine and femursis performed. The mean bone mineral density at L1-3 is 0.976 gm/cm2 which is83% of that of young normals and 109% of that of age matched controls. Thisyields a T- score of -1.6 and a Z-score of 0.7 which is diagnostic of osteopenia. The mean bone mineral density of the femurs bilaterally is 0.745 gm/by5wftpw is 74% of that of young normals and 98% of that of age matched controls.This yields a T-score of -2.1 and a Z-score of -0.1 which is diagnostic of osteopenia. The T-score of the left femoral neck is -2.5 which isdiagnostic of osteoporosis. IMPRESSION: 1. Osteoporosis. There has been a decrease of 3.9% in bone mineraldensity in the lumbar spine since the prior examination of 03/23/2021. There hasbeen a decrease of 3.9% in bone mineral density in the right femur and a decreaseof 3.5% in bone mineral density in the left femur. 2. FRAX analysis yields a 10-year probability of major osteoporoticfracture of 17.3% and a 10-year probability of hip fracture of 4.0%. Code 10141 Dictating Physician: KIMBERLY LEI MD Electronically Signed by: KIMBERLY LEI MD Dic Date/Time: 04/28/23 1033 Sign date/Time: 04/28/23 1035 Marc Prieto MD IMG BI PROCEDURES Final Res ult from Last 3 Months or Most Recently Relevant to Health Maintenance Insurance MEDICARE [facility] Care Teams Decorating Kiln Operator Relationship Specialty Start Date End Date Marc Prieto MD PCP - General Internal Medicine 05/08/24
--- OUTSIDE RECORDS SUMMARY | 2024-09-21 11:32 | XMS_ITS | Patient Health Record ---
Author Organization [facility] [place] Address [address] [place] [address] Care Team Providers Care Mixing Machine Feeder Name Role Phone Conner DAO, Incole Primary Care Provider Fozia Ramey Unavailable [phone] Allergies Allergen (clinical drug ingredient) Drug/Non Drug Allergy documented on EMR Reaction Allergy Type Onset Date Status pseudoephedrine Pseudoephedrine light headed, dizziness Drug Allergy Active Reason For Referral No Information Medications Medication SIG (Take, Route, Frequency, Duration) Notes Start Date End Date Status Glucosamine Chondr 1500 Complx prn Active Super B Complex Acti ve Mupirocin 2 % 1 application Warp Dresser ally Once a day for 30 days Active Co Q-10 200 MG 1 capsule with a sabas l Orally Once a day for 30 day(s) prn Active Gabapentin 300 MG 1 capsule Orally Onc e a day for 30 day(s) Not-Taking Simvastatin 20 MG 1 tablet in the even ing Orally Once a day for 30 day(s) Active NIFEdipine ER 60 MG 1 tablet on an empty stomach Orally Once a day for 30 day(s) Active Vitamin B12 Active lamoTRIgine 100 MG 2 tablet Orally daily Not-Taking Turmeric Not-Taking Vitamin D 50 MCG (1999) 1 capsule Orally 3 times per week Active Social History Tobacco Use: Social History Observation Description Date Details (start date - stop date) Never Smoker NA - NA Tobacco Use/Smoking Question Answer Notes Are you a: nonsmoker Additional Findings: Tobacco Non-User Current no n-smoker Alcohol Screen Question Answer Notes Did you have a drink containing alcohol in the p ast year? Yes Points 0 Interpretation Negative Tobacco use other than smoking: Question Answer Notes Are you an other tobacco user? No Plan Of Treatment Pending Test Test Name Order Date 39606- Debride <25 sq cm 10/13/2022 Insurance Providers Payer Name Payer Address Payer Phone Subscriber Number Group Number Insured Name Patient Relationship to Insured Coverage Start Date Coverage End Date Medicare [employer] [address] [place] [address] [id number] Jolanta Salamanca Self - patient is the insured [employer] [address] [place] [address] [phone] [id number] Jolanta Salamanca Self - patient is the insured Medical (General) History Medical History History ICD Code Arthritis Hip pain Headaches Measles Neuropathy high cholesterol chicken pox Surgical History Surgery Date(Month/Year) broken wrist 04/2009
== END 2024-09-21 11:30 | disposition home or self-care (01) ==
LOC: HO.HGI 10:47
PROVIDERS: PCP Family Medicine; Visit Provider Nurse Practitioner Family
DX: K63.5 Polyp of colon (principal); K21.00 Gastro-esophageal reflux disease with esophagitis, without bleeding; K59.09 Other constipation
CPT/HCPCS: 99215

== ENCOUNTER → 2024-09-21 10:46 | Outpatient (BNVA) | payer MEDICARE, OTHER, SELFPAY | PROVIDERS: PCP Family Medicine; Visit Provider Nurse Practitioner Family | DX: K21.00 Gastro-esophageal reflux disease with esophagitis, without bleeding (principal); K59.09 Other constipation; K63.5 Polyp of colon | CPT/HCPCS: 99212 ==